=== PATIENT | female | born 1935 | race Caucasian/White ===

== ENCOUNTER 2018-03-17 05:55 | Day surgery (SDC) | payer OTHER ==
[~2018-03-17 05:55] MED LIST: COZAAR50 MG; GLIMEPIRIDE2 MG; KOMBIGLYZE XR1 EAC2; KOMBIGLYZE XR1 EAC2 PO; LANTUS; SIMVASTATIN20 MG
== END 2018-03-17 09:53 | disposition home or self-care (01) ==
LOC: CIR.AMB 05:55 → ADM 04-09 07:30
DX: M65.331 Trigger finger, right middle finger (principal)

== ENCOUNTER 2023-08-07 10:57 | Outpatient (CLI) | payer OTHER | END 2023-08-07 10:59 | disposition home or self-care (01) | LOC: SONOGRAMA 10:57 | PROVIDERS: ATTEND Pathology Anatomic Pathology & Clinical Pathology | DX: D34 Benign neoplasm of thyroid gland (principal) ==

== ENCOUNTER 2023-10-19 08:37 | Emergency (ER) | payer OTHER ==
[~2023-10-19] VITALS: Ht 154.9 cm; Wt 64.9 kg
[2023-10-19] MEDS ORDERED: ECOTRIN81 MG (08:51)
== END 2023-10-19 10:32 | disposition home or self-care (01) ==
LOC: ER 08:39
DX: S33.5XXA Sprain of ligaments of lumbar spine, initial encounter (principal); X58.XXXA Exposure to other specified factors, initial encounter; Y93.89 Activity, other specified; Y92.89 Other specified places as the place of occurrence of the external cause; Y99.8 Other external cause status; E11.9 Type 2 diabetes mellitus without complications; Z79.84 Long term (current) use of oral hypoglycemic drugs
CPT/HCPCS: 96372; 99282; J1885; J2360

== ENCOUNTER 2023-11-17 06:53 | Emergency (ER) | payer OTHER ==
[~2023-11-17] VITALS: Ht 154.9 cm; Wt 67.6 kg
[~2023-11-17 06:53] MED LIST changes: +ECOTRIN81 MG
[2023-11-17] MEDS ORDERED: KETOROLAC TROMETHAMINE 30 MG VIAL IV ONE (08:30)
== END 2023-11-17 10:09 | disposition home or self-care (01) ==
LOC: ER 06:53
DX: M51.26 Other intervertebral disc displacement, lumbar region (principal); R10.9 Unspecified abdominal pain; I10 Essential (primary) hypertension; E11.9 Type 2 diabetes mellitus without complications
CPT/HCPCS: 72131; 96365; 99284; J1885

== ENCOUNTER 2024-03-26 09:50 | Inpatient (IN) | payer OTHER ==
[~2024-03-26] VITALS: Ht 154.9 cm; Wt 133.8 kg
[2024-03-26] MEDS ORDERED: JUVEN PACKET1 EAC1 PO (10:15)
[2024-03-26 10:57] LABS: HEMATOCRIT 33.7 % (36.0-45.00); HEMOGLOBIN 11.5 g/dL (12.0-15.00); MEAN CELL VOLUME 93.3 fL (80.00-100.00); MEAN CORPUSCULAR HEMOGLOBIN 31.8 pg (27.00-32.0); MEAN CORPUSCULAR HGB CONC 34.1 g/dl (32.0-36.0); PLATELET COUNT 342 K/uL (150-450); RED BLOOD COUNT 3.61 M/uL (4.00-6.00)
[2024-03-26] MEDS ORDERED: ONDANSETRON HCL 2 MG/ML VIAL IV STA (10:59)
[2024-03-26 11:24] LABS: CALCIUM 9.1 mg/dL (8.5-10.1); CREATININE SERUM 1.22 mg/dL (0.55-1.02); GFR 41.69; POTASSIUM 4.13 mEq/L (3.5-5.1)
[2024-03-26 11:25] LABS: PH,URINE 5.5 (5.0-8.0); URINE APPEARANCE Clear; URINE BILIRRUBIN Negative (NEGATIVE); URINE BLOOD Negative; URINE COLOR Yellow; URINE GLUCOSE Negative (NEGATIVE); URINE LEUKOCYTE Negative; URINE NITRATE Negative; URINE PROTEIN Negative (NEGATIVE); URINE UROBILINOGEN 0.2 E.U./dl
[2024-03-26 11:26] LABS: URINE BACTERIA 8.8 uL (0.0-1933); URINE EPITHELIAL CELLS 3.8 uL (0.0-38.8); URINE WBC 6.1 uL (0.0-23.2)
[2024-03-26 11:28] LABS: URINE RBC 0.4 uL (0.0-20.8)
[2024-03-26] MEDS ORDERED: FAMOTIDINE/PF 20 MG in 0.9 % SODIUM CHLORIDE 8 ML IV PUSH STA (19:28)
[2024-03-26] MEDS ORDERED: MEPERIDINE HCL/PF 25 MG/ML VIAL IM PRN (19:30)
[2024-03-26] MEDS ORDERED: PROMETHAZINE HCL 25 MG/ML AMPUL IM PRN (19:30)
[2024-03-26] MEDS ORDERED: 0.9 % SODIUM CHLORIDE 1,000 ML IV SCH ×2 (19:30→20:30)
[2024-03-26 19:58] LABS: HEMATOCRIT 33.7 % (36.0-45.00); HEMOGLOBIN 11.4 g/dL (12.0-15.00); MEAN CELL VOLUME 92.2 fL (80.00-100.00); MEAN CORPUSCULAR HEMOGLOBIN 31.1 pg (27.00-32.0); MEAN CORPUSCULAR HGB CONC 33.8 g/dl (32.0-36.0); PLATELET COUNT 378 K/uL (150-450); RED BLOOD COUNT 3.66 M/uL (4.00-6.00); RED CELL DISTRIBUTION WIDTH 13.4 % (11.5-14.5)
[2024-03-26 20:23] LABS: ALBUMIN 3.3 gm/dL (3.4-5.0); BILIRUBIN TOTAL 0.45 mg/dL (0.3-1.2); CALCIUM 9.3 mg/dL (8.5-10.1); CREATININE SERUM 1.23 mg/dL (0.55-1.02); GFR 41.3; GLOBULINA 4.4 G/DL (2.4-3.5); POTASSIUM 4.23 mEq/L (3.5-5.1); TOTAL PROTEIN 7.7 gm/dL (6.4-8.2)
[2024-03-26] MEDS ORDERED: INSULIN LISPRO 1,000 UNIT/10 ML UNITS SUBCUTANEO PRN (20:30)
[2024-03-26] MEDS ORDERED: DEXTROSE 50 % IN WATER 0.5 G/ML DISP.SYRIN IV PRN (20:30)
[2024-03-26] MEDS ORDERED: SIMVASTATIN 40 MG TABLET PO SCH (20:38)
[2024-03-26] MEDS ORDERED: ONDANSETRON HCL 4 MG in 0.9 % SODIUM CHLORIDE 50 ML IV PRN (20:45)
[2024-03-26] MEDS ORDERED: hydrALAZINE HCL 20 MG VIAL IV PRN (20:45)
[2024-03-26] MEDS ORDERED: ACETAMINOPHEN 500 MG GEL..CAP PO PRN (20:45)
[2024-03-26] MEDS ORDERED: FAMOTIDINE/PF 20 MG in 0.9 % SODIUM CHLORIDE 8 ML IV PUSH SCH (21:00)
[2024-03-26] MEDS ORDERED: METRONIDAZOLE/SODIUM CHLORIDE 100 ML IV SCH (21:00)
[2024-03-26] MEDS ORDERED: CIPROFLOXACIN IN 5 % DEXTROSE 200 ML IV SCH (21:00)
[2024-03-27] MEDS ORDERED: MEPERIDINE HCL/PF 25 MG/ML VIAL IM SCH
[2024-03-27] MEDS ORDERED: METRONIDAZOLE/SODIUM CHLORIDE 100 ML IV SCH (01:00)
[2024-03-27 07:31] LABS: HEMATOCRIT 31.1 % (36.0-45.00); HEMOGLOBIN 10.6 g/dL (12.0-15.00); MEAN CELL VOLUME 92.1 fL (80.00-100.00); MEAN CORPUSCULAR HEMOGLOBIN 31.3 pg (27.00-32.0); PLATELET COUNT 311 K/uL (150-450); RED BLOOD COUNT 3.38 M/uL (4.00-6.00); RED CELL DISTRIBUTION WIDTH 13.3 % (11.5-14.5)
[2024-03-27 08:00] LABS: ALBUMIN 2.9 gm/dL (3.4-5.0); BILIRUBIN TOTAL 0.64 mg/dL (0.3-1.2); BILIRUBIN,CONJUGATED 0.16 mg/dL (0.0-0.2); BILIRUBIN,UNCONJUGATED 0.48 mg/dL (0.0-0.6); CALCIUM 8.7 mg/dL (8.5-10.1); CHOL HDL RATIO 2.2 (0-5.0); CREATININE SERUM 1.14 mg/dL (0.55-1.02); GFR 45.09; GLOBULINA 3.4 G/DL (2.4-3.5); POTASSIUM 4.48 mEq/L (3.5-5.1); TOTAL PROTEIN 6.3 gm/dL (6.4-8.2)
[2024-03-27 08:19] LABS: ERYTHROCYTE SEDIMENTATION RATE 55 mm/hr
[2024-03-27 08:20] LABS: PARTIAL THROMBOPLASTIN TIME 31.5 SECONDS (22.0-34.0); PROTHROMBIN TIME 10.5 SECONDS (9.0-11.5)
[2024-03-27 08:35] LABS: C-REACTIVE PROTEIN 3.81 MG/DL (0.00-0.29)
[2024-03-27 08:37] LABS: URINE APPEARANCE Clear; URINE BILIRRUBIN Negative (NEGATIVE); URINE BLOOD Negative; URINE COLOR Yellow; URINE GLUCOSE Negative (NEGATIVE); URINE LEUKOCYTE Negative; URINE NITRATE Negative; URINE PROTEIN Negative (NEGATIVE); URINE UROBILINOGEN 0.2 E.U./dl
[2024-03-27 08:42] LABS: URINE EPITHELIAL CELLS 5.3 uL (0.0-38.8); URINE WBC 7.8 uL (0.0-23.2)
[2024-03-27 08:51] LABS: URINE RBC 0.1 uL (0.0-20.8)
[2024-03-27] MEDS ORDERED: LOSARTAN POTASSIUM 100 MG TABLET PO SCH (09:00)
[2024-03-27] MEDS ORDERED: DEXTROSE 50 % IN WATER 0.5 G/ML DISP.SYRIN IV PRN (11:45)
[2024-03-27] MEDS ORDERED: AMINO ACIDS 4.25 %/DEXTROSE 5% 1,000 ML PERIFERAL SCH (17:00)
[2024-03-29 07:48] LABS: HEMATOCRIT 30.4 % (36.0-45.00); HEMOGLOBIN 10.2 g/dL (12.0-15.00); MEAN CELL VOLUME 92.6 fL (80.00-100.00); MEAN CORPUSCULAR HGB CONC 33.5 g/dl (32.0-36.0); PLATELET COUNT 288 K/uL (150-450); RED BLOOD COUNT 3.29 M/uL (4.00-6.00); RED CELL DISTRIBUTION WIDTH 13.3 % (11.5-14.5)
[2024-03-29 08:26] LABS: INR 1.1; PARTIAL THROMBOPLASTIN TIME 33.7 SECONDS (22.0-34.0); PROTHROMBIN TIME 11.5 SECONDS (9.0-11.5)
[2024-03-29 08:38] LABS: ALBUMIN 2.9 gm/dL (3.4-5.0); BILIRUBIN TOTAL 0.43 mg/dL (0.3-1.2); BILIRUBIN,CONJUGATED 0.14 mg/dL (0.0-0.2); BILIRUBIN,UNCONJUGATED 0.29 mg/dL (0.0-0.6); CALCIUM 8.5 mg/dL (8.5-10.1); CHOL HDL RATIO 1.7 (0-5.0); CREATININE SERUM 1.1 mg/dL (0.55-1.02); GFR 46.98; GLOBULINA 3.4 G/DL (2.4-3.5); MAGNESIUM 1.5 mg/dL (1.8-2.4); POTASSIUM 3.94 mEq/L (3.5-5.1); TOTAL PROTEIN 6.3 gm/dL (6.4-8.2)
[2024-03-29 09:45] LABS: UREA CLEARANCE 16.2 ML/MIN
[2024-03-29] MEDS ORDERED: MEPERIDINE HCL/PF 25 MG/ML VIAL IM SCH (12:00)
[2024-03-29] MEDS ORDERED: fentaNYL CITRATE 50 MCG/ML AMPUL IV PUSH NR (18:45)
[2024-03-29] MEDS ORDERED: MIDAZOLAM HCL 2 MG/2 ML VIAL IV PUSH NR (18:45)
[2024-03-31] MEDS ORDERED: MEPERIDINE HCL/PF 25 MG/ML VIAL IV SCH (12:00)
[2024-03-31] MEDS ORDERED: CEFTRIAXONE SODIUM 2,000 MG in 0.9 % SODIUM CHLORIDE 100 ML IV SCH (17:00)
[2024-04-01] MEDS ORDERED: DIATRIZOATE MEGLUMINE, SODIUM 30 ML BOTTLE PO NR (07:00)
[2024-04-01] MEDS ORDERED: FAMOTIDINE/PF 20 MG in 0.9 % SODIUM CHLORIDE 8 ML IV PUSH SCH (09:00)
[2024-04-01] MEDS ORDERED: MEPERIDINE HCL/PF 25 MG/ML VIAL IV STA (09:05)
[2024-04-01] MEDS ORDERED: ONDANSETRON HCL 2 MG/ML VIAL IV STA (09:06)
[2024-04-01] MEDS ORDERED: DIPHENHYDRAMINE HCL 50 MG/ML VIAL 1ML IV NR (13:45)
[2024-04-01] MEDS ORDERED: METHYLPREDNISOLONE SOD SUCC 40 MG VIAL IV NR (13:45)
[2024-04-01] MEDS ORDERED: ONDANSETRON HCL 2 MG/ML VIAL IV SCH (14:00)
[2024-04-03] MEDS ORDERED: CLONAZEPAM 0.5 MG TABLET PO SCH (17:00)
[2024-04-04 11:56] LABS: ALBUMIN 2.7 gm/dL (3.4-5.0); BILIRUBIN TOTAL 0.3 mg/dL (0.3-1.2); CALCIUM 8.2 mg/dL (8.5-10.1); CREATININE SERUM 0.96 mg/dL (0.55-1.02); GFR 54.98; GLOBULINA 3.6 G/DL (2.4-3.5); POTASSIUM 3.36 mEq/L (3.5-5.1); TOTAL PROTEIN 6.3 gm/dL (6.4-8.2)
[2024-04-05 07:42] LABS: HEMATOCRIT 32.3 % (36.0-45.00); MEAN CELL VOLUME 92.4 fL (80.00-100.00); MEAN CORPUSCULAR HEMOGLOBIN 31.5 pg (27.00-32.0); MEAN CORPUSCULAR HGB CONC 34.1 g/dl (32.0-36.0); PLATELET COUNT 309 K/uL (150-450); RED BLOOD COUNT 3.49 M/uL (4.00-6.00); RED CELL DISTRIBUTION WIDTH 13.9 % (11.5-14.5)
[2024-04-05 08:04] LABS: INR 1.04; PARTIAL THROMBOPLASTIN TIME 31.3 SECONDS (22.0-34.0); PROTHROMBIN TIME 10.9 SECONDS (9.0-11.5)
[2024-04-05 08:22] LABS: ALBUMIN 2.7 gm/dL (3.4-5.0); BILIRUBIN TOTAL 0.28 mg/dL (0.3-1.2); BILIRUBIN,CONJUGATED 0.11 mg/dL (0.0-0.2); BILIRUBIN,UNCONJUGATED 0.17 mg/dL (0.0-0.6); CALCIUM 8.6 mg/dL (8.5-10.1); CHOL HDL RATIO 2.4 (0-5.0); CREATININE SERUM 0.94 mg/dL (0.55-1.02); GFR 56.33; GLOBULINA 3.4 G/DL (2.4-3.5); MAGNESIUM 1.5 mg/dL (1.8-2.4); POTASSIUM 3.3 mEq/L (3.5-5.1); TOTAL PROTEIN 6.1 gm/dL (6.4-8.2)
[2024-04-05 08:25] LABS: UREA CLEARANCE 12.7 ML/MIN
[2024-04-05] MEDS ORDERED: METRONIDAZOLE/SODIUM CHLORIDE 500 MG/100 ML PIGGYBACK IV SCH (17:00)
[2024-04-05] MEDS ORDERED: CLONAZEPAM 1 MG TABLET PO SCH (17:00)
[2024-04-06 06:08] LABS: MEAN CELL VOLUME 91.7 fL (80.00-100.00); MEAN CORPUSCULAR HEMOGLOBIN 31.7 pg (27.00-32.0); MEAN CORPUSCULAR HGB CONC 34.6 g/dl (32.0-36.0); PLATELET COUNT 280 K/uL (150-450); RED BLOOD COUNT 3.49 M/uL (4.00-6.00); RED CELL DISTRIBUTION WIDTH 13.8 % (11.5-14.5)
[2024-04-06] MEDS ORDERED: ENOXAPARIN SODIUM 40 MG/0.4 ML SYRINGE SUBCUTANEO SCH (09:38)
[2024-04-06] MEDS ORDERED: CLONAZEPAM 1 MG TABLET PO SCH (19:00)
[2024-04-07] MEDS ORDERED: KETOROLAC TROMETHAMINE 30 MG VIAL IM PRN (09:00)
[2024-04-07] MEDS ORDERED: ENOXAPARIN SODIUM 40 MG/0.4 ML SYRINGE SUBCUTANEO SCH (09:00)
== END 2024-04-08 12:21 | disposition home or self-care (01) | DRG 372 ==
LOC: ER 09:51 → MEDJ 21:18
PROVIDERS: Emergency Medicine; General Practice; Internal Medicine; ADMIT Internal Medicine; ATTEND Internal Medicine
PROC: BW21ZZZ Computerized Tomography (CT Scan) of Abdomen and Pelvis (ICD-10-PCS; 2024-03-26)
PROC: BW21YZZ Computerized Tomography (CT Scan) of Abdomen and Pelvis using Other Contrast (ICD-10-PCS; 2024-03-28)
PROC: 0W9F3ZZ Drainage of Abdominal Wall, Percutaneous Approach (ICD-10-PCS; principal; 2024-03-29)
PROC: 02HV33Z Insertion of Infusion Device into Superior Vena Cava, Percutaneous Approach (ICD-10-PCS; 2024-03-31)
PROC: BW21YZZ Computerized Tomography (CT Scan) of Abdomen and Pelvis using Other Contrast (ICD-10-PCS; 2024-04-01)
PROC: B54DZZZ Ultrasonography of Bilateral Lower Extremity Veins (ICD-10-PCS; 2024-04-06)
DX: K65.1 Peritoneal abscess (principal); K57.80 Diverticulitis of intestine, part unspecified, with perforation and abscess without bleeding; B96.20 Unspecified Escherichia coli [E. coli] as the cause of diseases classified elsewhere; E11.9 Type 2 diabetes mellitus without complications; Z79.4 Long term (current) use of insulin

== ENCOUNTER 2024-04-17 20:11 | Emergency (ER) | payer OTHER ==
[~2024-04-17] VITALS: Ht 154.9 cm; Wt 59.0 kg
[~2024-04-17 20:11] MED LIST changes: +JUVEN PACKET1 EAC1 PO
[2024-04-17] MEDS ORDERED: DEXAMETHASONE SODIUM PHOSPHATE 4 MG/ML VIAL IM STA (21:11)
[2024-04-17] MEDS ORDERED: DEXAMETHASONE SODIUM PHOSPHATE 4 MG/ML VIAL ONE (21:23)
== END 2024-04-17 22:09 | disposition home or self-care (01) ==
LOC: ER 20:12
DX: R53.81 Other malaise (principal); R07.0 Pain in throat

== ENCOUNTER 2024-04-19 15:15 | Emergency (ER) | payer OTHER ==
[~2024-04-19] VITALS: Ht 152.4 cm; Wt 59.0 kg
[2024-04-19] MEDS ORDERED: ALL DAY ALLERGY10 M3 PO (15:46)
[2024-04-19] MEDS ORDERED: BUDESONIDE 0.5 MG/2 ML AMPUL.NEB IH ONE (17:30)
[2024-04-19] MEDS ORDERED: LEVALBUTEROL HCL 1.25 MG/3 ML SOLUTION IH ONE ×2 (17:30→19:48)
[2024-04-19] MEDS ORDERED: BENZONATATE 100 MG CAPSULE PO ONE (17:30)
[2024-04-19 17:38] LABS: HEMATOCRIT 32.5 % (36.0-45.00); HEMOGLOBIN 10.9 g/dL (12.0-15.00); MEAN CELL VOLUME 91.9 fL (80.00-100.00); MEAN CORPUSCULAR HEMOGLOBIN 30.8 pg (27.00-32.0); MEAN CORPUSCULAR HGB CONC 33.5 g/dl (32.0-36.0); PLATELET COUNT 465 K/uL (150-450); RED BLOOD COUNT 3.54 M/uL (4.00-6.00); RED CELL DISTRIBUTION WIDTH 14.9 % (11.5-14.5)
[2024-04-19] MEDS ORDERED: BUDESONIDE 0.25 MG/2 ML AMPUL.NEB IH ONE ×2 (19:49→19:50)
[2024-04-19] MEDS ORDERED: XOPENEX CO1.25 MG/0. IH (20:31)
[2024-04-19] MEDS ORDERED: BENZONATATE150 MG PO (20:31)
[2024-04-19] MEDS ORDERED: BUDESONIDE0.5 MG/21 IH (20:31)
[2024-04-19] MEDS ORDERED: INTESTINEX680 M1 PO (20:31)
[2024-04-19] MEDS ORDERED: DIABETIC TUSSI118 M3 PO (20:31)
[2024-04-19] MEDS ORDERED: IPRATROPIU0.2 MG/1 M IH (20:31)
[2024-04-19] MEDS ORDERED: LEVOFLOXACIN500 MG PO (20:31)
== END 2024-04-19 20:37 ==
LOC: ER 15:16
PROVIDERS: Nurse Practitioner Family
DX: J45.909 Unspecified asthma, uncomplicated (principal); R05.3 Chronic cough; Z20.822 Contact with and (suspected) exposure to COVID-19; I10 Essential (primary) hypertension; E11.9 Type 2 diabetes mellitus without complications

== ENCOUNTER 2024-04-26 18:47 | Inpatient (IN) | payer OTHER ==
[~2024-04-26] VITALS: Ht 154.9 cm; Wt 59.0 kg
[~2024-04-26 18:47] MED LIST changes: +ALL DAY ALLERGY10 M3 PO; +BENZONATATE150 MG PO; +BUDESONIDE0.5 MG/21 IH; +DIABETIC TUSSI118 M3 PO; +INTESTINEX680 M1 PO; +IPRATROPIU0.2 MG/1 M IH; +LEVOFLOXACIN500 MG PO; +XOPENEX CO1.25 MG/0. IH
--- NOTE | 2024-04-26 20:09 | NUR ---
PACIENTE ALERTA Y ORIENTADA X3. FAMILIAR REFIERE QUE A PACIENTE LE COLOCARON ARCHANA NEFRO HACE UN MES. PACIENTE REFIERE DOLOR ALYCE EN AREA. SE JOSE S/V Y SE UBICA.
[2024-04-26] MEDS ORDERED: FAMOtidine 10 MG/ML (4ML VIAL) IV ONE (21:15)
[2024-04-26] MEDS ORDERED: 0.9 % SODIUM CHLORIDE 1,000 ML IV ONE (21:15)
[2024-04-26] MEDS ORDERED: LEVALBUTEROL HCL 0.63 MG/3 ML SOLUTION IH ONE (21:15)
[2024-04-26] MEDS ORDERED: BENZONATATE 100 MG CAPSULE PO ONE (21:15)
--- NOTE | 2024-04-26 21:31 | NUR ---
SE ORIENTA A PACIENTE SOBRE TX MEDICO, REFIERE ENTENDER. SE REALIZAN MUESTRAS DE LABORATORIO BAJO MEDIDAS ASEPTICAS. SE ADMINISTRAN MEDICAMENTOS АЛЕКСАНДР ORDEN MEDICA. SE COORDINAN HOLLIS X. SE NOTIFICAN TERAPIA RESPIRATORIA. PACIENTE MANEJADA POR . PENDIENTE RE-EVALUACION MEDICA.
[2024-04-26 21:49] LABS: HEMATOCRIT 34.3 % (36.0-45.00); HEMOGLOBIN 11.9 g/dL (12.0-15.00); MEAN CELL VOLUME 92.8 fL (80.00-100.00); MEAN CORPUSCULAR HEMOGLOBIN 32.2 pg (27.00-32.0); MEAN CORPUSCULAR HGB CONC 34.7 g/dl (32.0-36.0); PLATELET COUNT 420 K/uL (150-450); RED BLOOD COUNT 3.69 M/uL (4.00-6.00); RED CELL DISTRIBUTION WIDTH 14.1 % (11.5-14.5)
[2024-04-26 22:06] LABS: INR 1.02; PARTIAL THROMBOPLASTIN TIME 35.3 SECONDS (22.0-34.0); PROTHROMBIN TIME 10.7 SECONDS (9.0-11.5)
[2024-04-26 22:10] LABS: ALBUMIN 2.9 gm/dL (3.4-5.0); BILIRUBIN TOTAL 0.35 mg/dL (0.3-1.2); CALCIUM 9.5 mg/dL (8.5-10.1); CREATININE SERUM 1.37 mg/dL (0.55-1.02); GFR 36.47; GLOBULINA 4.9 G/DL (2.4-3.5); POTASSIUM 3.82 mEq/L (3.5-5.1); TOTAL PROTEIN 7.8 gm/dL (6.4-8.2)
[2024-04-26 22:13] LABS: ERYTHROCYTE SEDIMENTATION RATE > 130 mm/hr
[2024-04-26] MEDS ORDERED: KETOROLAC TROMETHAMINE 30 MG VIAL IV ONE (23:15)
--- NOTE | 2024-04-27 02:17 | NUR ---
SE ADMINISTRA MEDICAMENTO АЛЕКСАНДР ORDEN MEDICA.QUEDA BAJO OBSERVACION.
--- NOTE | 2024-04-27 07:31 | NUR ---
SE RECIBE PTE ALERTA Y ORIENTADA X3. EN DYAN BAJA CON BARANDAS ELEVADAS POR SEGURIDAD. CANALIZACION PATENTE, LEANA DE EDEMA Y ERITEMA, RECIBIENDO IV FLUIDS. PEND CONSULTA CON DR. PABON
[2024-04-27 08:23] LABS: URINE APPEARANCE Clear; URINE BILIRRUBIN Negative (NEGATIVE); URINE BLOOD Negative; URINE COLOR Yellow; URINE GLUCOSE Negative (NEGATIVE); URINE KETONE Negative (NEGATIVE); URINE LEUKOCYTE Negative; URINE NITRATE Negative; URINE PROTEIN 30 (NEGATIVE); URINE UROBILINOGEN 0.2 E.U./dl
[2024-04-27] MEDS ORDERED: KETOROLAC TROMETHAMINE 30 MG VIAL IM PRN (09:00)
[2024-04-27] MEDS ORDERED: METRONIDAZOLE/SODIUM CHLORIDE 100 ML IV SCH (09:00)
[2024-04-27 09:02] LABS: URINE BACTERIA 14.7 uL (0.0-1933); URINE EPITHELIAL CELLS 77.9 uL (0.0-38.8); URINE RBC 157.4 uL (0.0-20.8); URINE WBC 11.4 uL (0.0-23.2)
[2024-04-27] MEDS ORDERED: 0.9 % SODIUM CHLORIDE 1,000 ML IV SCH (10:00)
[2024-04-27] MEDS ORDERED: GUAIFENESIN 200 MG/10 ML BLIST.PACK PO SCH (12:00)
[2024-04-27] MEDS ORDERED: IPRATROPIUM BROMIDE 0.5 MG/2.5 ML AMPUL.NEB IH SCH (14:00)
[2024-04-27] MEDS ORDERED: DEXTROSE 50 % IN WATER 0.5 G/ML DISP.SYRIN IV PRN (14:30)
[2024-04-27] MEDS ORDERED: ONDANSETRON HCL 4 MG in 0.9 % SODIUM CHLORIDE 50 ML IV PRN (14:30)
[2024-04-27] MEDS ORDERED: INSULIN LISPRO 1,000 UNIT/10 ML UNITS SUBCUTANEO PRN (14:30)
[2024-04-27] MEDS ORDERED: LOSARTAN POTASSIUM 100 MG TABLET PO SCH (14:32)
[2024-04-27] MEDS ORDERED: ENOXAPARIN SODIUM 40 MG/0.4 ML SYRINGE SUBCUTANEO SCH (14:32)
[2024-04-27] MEDS ORDERED: CEFTRIAXONE SODIUM 2,000 MG in 0.9 % SODIUM CHLORIDE 100 ML IV SCH (15:44)
[2024-04-27 16:00] LABS: INR 1.02; PARTIAL THROMBOPLASTIN TIME 32.2 SECONDS (22.0-34.0); PROTHROMBIN TIME 10.7 SECONDS (9.0-11.5)
[2024-04-27 16:06] LABS: CHOL HDL RATIO 3.1 (0-5.0)
[2024-04-27 16:09] LABS: C-REACTIVE PROTEIN 12.4 MG/DL (0.00-0.29)
[2024-04-29 05:24] LABS: HEMATOCRIT 29.2 % (36.0-45.00); MEAN CELL VOLUME 92.4 fL (80.00-100.00); MEAN CORPUSCULAR HGB CONC 33.3 g/dl (32.0-36.0); PLATELET COUNT 329 K/uL (150-450); RED BLOOD COUNT 3.16 M/uL (4.00-6.00); RED CELL DISTRIBUTION WIDTH 13.9 % (11.5-14.5)
[2024-04-29 05:25] LABS: HEMOGLOBIN 9.7 g/dL (12.0-15.00); MEAN CORPUSCULAR HEMOGLOBIN 30.6 pg (27.00-32.0)
[2024-04-29 05:40] LABS: ALBUMIN 2.3 gm/dL (3.4-5.0); BILIRUBIN TOTAL 0.4 mg/dL (0.3-1.2); CALCIUM 8.2 mg/dL (8.5-10.1); CREATININE SERUM 1.19 mg/dL (0.55-1.02); GFR 42.91; GLOBULINA 3.3 G/DL (2.4-3.5); POTASSIUM 4.03 mEq/L (3.5-5.1); TOTAL PROTEIN 5.6 gm/dL (6.4-8.2)
[2024-04-29] MEDS ORDERED: MEPERIDINE HCL 25 MG/ML AMPUL IM PRN (08:15)
[2024-04-29] MEDS ORDERED: BENZONATATE 100 MG CAPSULE PO SCH (09:00)
[2024-04-29] MEDS ORDERED: IPRATROPIUM BROMIDE 0.5 MG/2.5 ML AMPUL.NEB IH SCH (09:00)
[2024-04-29] MEDS ORDERED: PANTOPRAZOLE SODIUM 40 MG/VIAL VIAL IV SCH (17:00)
[2024-04-29] MEDS ORDERED: MULTIVIT INFUSN,ADULT 4,VIT K 10 ML VIAL IV SCH (17:53)
[2024-04-30] MEDS ORDERED: IPRATROPIUM BROMIDE 0.5 MG/2.5 ML AMPUL.NEB IH SCH (06:00)
[2024-04-30] MEDS ORDERED: BENZONATATE 100 MG CAPSULE PO NR (06:45)
[2024-04-30] MEDS ORDERED: MORPHINE SULFATE 4 MG/ML CARTRIDGE IV PRN (06:45)
[2024-04-30 08:22] LABS: HEMATOCRIT 31.7 % (36.0-45.00); HEMOGLOBIN 10.4 g/dL (12.0-15.00); MEAN CELL VOLUME 93.3 fL (80.00-100.00); MEAN CORPUSCULAR HEMOGLOBIN 30.5 pg (27.00-32.0); MEAN CORPUSCULAR HGB CONC 32.7 g/dl (32.0-36.0); PLATELET COUNT 361 K/uL (150-450); RED CELL DISTRIBUTION WIDTH 13.8 % (11.5-14.5)
[2024-04-30] MEDS ORDERED: BUDESONIDE 0.25 MG/2 ML AMPUL.NEB IH SCH (09:00)
[2024-04-30] MEDS ORDERED: ENOXAPARIN SODIUM 30 MG/0.3 ML SYRINGE SUBCUTANEO SCH (09:00)
[2024-04-30] MEDS ORDERED: GUAIFENESIN 200 MG/10 ML BLIST.PACK PO SCH (14:00)
[2024-05-01] MEDS ORDERED: BUDESONIDE 0.5 MG/2 ML AMPUL.NEB IH SCH (21:00)
[2024-05-03 09:47] LABS: HEMATOCRIT 34.7 % (36.0-45.00); HEMOGLOBIN 11.4 g/dL (12.0-15.00); MEAN CELL VOLUME 91.4 fL (80.00-100.00); MEAN CORPUSCULAR HEMOGLOBIN 29.9 pg (27.00-32.0); MEAN CORPUSCULAR HGB CONC 32.8 g/dl (32.0-36.0); PLATELET COUNT 461 K/uL (150-450); RED CELL DISTRIBUTION WIDTH 14.6 % (11.5-14.5)
[2024-05-03 10:36] LABS: ALBUMIN 2.8 gm/dL (3.4-5.0); BILIRUBIN TOTAL 0.26 mg/dL (0.3-1.2); CREATININE SERUM 0.96 mg/dL (0.55-1.02); GFR 54.98; GLOBULINA 3.7 G/DL (2.4-3.5); POTASSIUM 4.24 mEq/L (3.5-5.1); TOTAL PROTEIN 6.5 gm/dL (6.4-8.2)
[2024-05-03] MEDS ORDERED: IOVERSOL 320 MG/ML - 50 ML VIAL IV ONE (20:01)
[2024-05-03] MEDS ORDERED: BUPIVACAINE HCL/MPF 0.5% 30ML VIAL ONE (20:01)
[2024-05-03] MEDS ORDERED: LIDOCAINE HCL 1%/EPINEPHRINE 20ML VIAL IJ ONE (20:02)
[2024-05-03] MEDS ORDERED: METHYLPREDNISOLONE SOD SUCC 40 MG VIAL IV SCH (20:29)
[2024-05-03] MEDS ORDERED: IPRATROPIUM/ALBUTEROL SULFATE 3 ML AMPUL.NEB IH ONE (20:56)
[2024-05-03] MEDS ORDERED: IPRATROPIUM/ALBUTEROL SULFATE 3 ML AMPUL.NEB IH SCH (21:00)
[2024-05-03] MEDS ORDERED: SILVER NITRATE APPLICATOR 1 PKT EACH TOP ONE (22:00)
[2024-05-04] MEDS ORDERED: IPRATROPIUM/ALBUTEROL SULFATE 3 ML AMPUL.NEB IH ONE (00:14)
[2024-05-04] MEDS ORDERED: METRONIDAZOLE/SODIUM CHLORIDE 500 MG/100 ML PIGGYBACK IV ONE (01:20)
[2024-05-04] MEDS ORDERED: METHYLPREDNISOLONE SOD SUCC 40 MG VIAL ONE (01:20)
[2024-05-04] MEDS ORDERED: PANTOPRAZOLE SODIUM 40 MG TABLET.DR PO SCH (09:00)
[2024-05-04] MEDS ORDERED: INSULIN GLARGINE,HUM.REC.ANLOG 1,000 UNITS/10 ML UNITS SUBCUTANEO STA (20:43)
[2024-05-05] MEDS ORDERED: MEPERIDINE HCL 25 MG/ML AMPUL IM PRN (06:30)
[2024-05-05 08:22] LABS: HEMATOCRIT 29.9 % (36.0-45.00); HEMOGLOBIN 9.9 g/dL (12.0-15.00); MEAN CELL VOLUME 92.7 fL (80.00-100.00); MEAN CORPUSCULAR HEMOGLOBIN 30.7 pg (27.00-32.0); MEAN CORPUSCULAR HGB CONC 33.1 g/dl (32.0-36.0); PLATELET COUNT 453 K/uL (150-450); RED BLOOD COUNT 3.23 M/uL (4.00-6.00); RED CELL DISTRIBUTION WIDTH 14.1 % (11.5-14.5)
[2024-05-05] MEDS ORDERED: INSULIN LISPRO 1,000 UNIT/10 ML UNITS SUBCUTANEO SCH ×2 (09:00→17:00)
[2024-05-05] MEDS ORDERED: BENZONATATE 100 MG CAPSULE PO SCH (09:00)
[2024-05-05 09:27] LABS: ALBUMIN 2.7 gm/dL (3.4-5.0); BILIRUBIN TOTAL 0.17 mg/dL (0.3-1.2); CALCIUM 8.5 mg/dL (8.5-10.1); CREATININE SERUM 1.12 mg/dL (0.55-1.02); GFR 46.02; GLOBULINA 3.2 G/DL (2.4-3.5); POTASSIUM 4.32 mEq/L (3.5-5.1); TOTAL PROTEIN 5.9 gm/dL (6.4-8.2)
[2024-05-05] MEDS ORDERED: ACETAMINOPHEN 500 MG GEL..CAP PO PRN (12:45)
[2024-05-05] MEDS ORDERED: INSULIN GLARGINE,HUM.REC.ANLOG 1,000 UNITS/10 ML UNITS SUBCUTANEO SCH (21:00)
[2024-05-06] MEDS ORDERED: METROnidazole 500 MG TABLET PO SCH (17:00)
[2024-05-07] MEDS ORDERED: LEVALBUTEROL HCL 0.63 MG/3 ML SOLUTION IH SCH (08:16)
[2024-05-08] MEDS ORDERED: BENZONATATE100 MG PO (09:25)
[2024-05-08] MEDS ORDERED: TUSSIN MUC100 MG/5 M PO (09:25)
[2024-05-08] MEDS ORDERED: METRONIDAZOLE500 MG PO (09:25)
[2024-05-08] MEDS ORDERED: PANTOPRAZOLE SO40 MG PO (09:25)
[2024-05-08] MEDS ORDERED: LEVALBUTER0.31 MG/3 IH (09:25)
[2024-05-08] MEDS ORDERED: TRAMADOL HCL100 M2 PO (09:29)
== END 2024-05-08 10:51 | disposition home or self-care (01) | DRG 392 ==
LOC: ER 18:48 → SEC-K 04-27 09:07 → SURH 04-27 09:07 → MEDI 04-27 09:07 → SURH 04-29 21:03
PROVIDERS: General Practice; Radiology Vascular & Interventional Radiology; ADMIT Internal Medicine; ATTEND Internal Medicine
PROC: 0W2FX0Z Change Drainage Device in Abdominal Wall, External Approach (ICD-10-PCS; principal; 2024-05-03 19:00)
DX: K57.20 Diverticulitis of large intestine with perforation and abscess without bleeding (principal); J45.41 Moderate persistent asthma with (acute) exacerbation; K63.2 Fistula of intestine; T85.9XXA Unspecified complication of internal prosthetic device, implant and graft, initial encounter; D64.9 Anemia, unspecified; I10 Essential (primary) hypertension; E11.9 Type 2 diabetes mellitus without complications; E78.5 Hyperlipidemia, unspecified; E11.65 Type 2 diabetes mellitus with hyperglycemia; B96.20 Unspecified Escherichia coli [E. coli] as the cause of diseases classified elsewhere; B96.89 Other specified bacterial agents as the cause of diseases classified elsewhere

== ENCOUNTER 2024-08-18 09:00 | Inpatient (IN) | payer OTHER ==
[~2024-08-18] VITALS: Ht 30.5 cm; Wt 59.0 kg
[~2024-08-18 09:00] MED LIST changes: +BENZONATATE100 MG PO; +LEVALBUTER0.31 MG/3 IH; +METRONIDAZOLE500 MG PO; +PANTOPRAZOLE SO40 MG PO; +TRAMADOL HCL100 M2 PO; +TUSSIN MUC100 MG/5 M PO
[2024-08-18] MEDS ORDERED: JANUMET 50-5001 EACH PO (12:05)
[2024-08-18] MEDS ORDERED: AMOX TR-K250 MG/5 M (12:05)
[2024-08-18] MEDS ORDERED: HORIZANT300 MG PO (12:06)
[2024-08-30] MEDS ORDERED: CEFTRIAXONE SODIUM 2,000 MG VIAL IV ONE (11:00)
[2024-08-30] MEDS ORDERED: METRONIDAZOLE/SODIUM CHLORIDE 500 MG/100 ML PIGGYBACK IV ONE (11:00)
[2024-08-30] MEDS ORDERED: RINGERS SOLUTION,LACTATED 1,000 ML IV SCH (13:15)
[2024-08-30] MEDS ORDERED: ONDANSETRON HCL 2 MG/ML VIAL IV PRN (13:15)
[2024-08-30] MEDS ORDERED: OxyCODONE HCL 5 MG TABLET (ROXICODONE) PO PRN (13:15)
[2024-08-30] MEDS ORDERED: MORPHINE SULFATE 4 MG/ML CARTRIDGE IV PRN (13:15)
[2024-08-30] MEDS ORDERED: DEXTROSE 50 % IN WATER 0.5 G/ML DISP.SYRIN IV PRN (13:45)
[2024-08-30] MEDS ORDERED: INSULIN LISPRO 1,000 UNIT/10 ML UNITS SUBCUTANEO PRN (13:45)
[2024-08-30] MEDS ORDERED: MORPHINE SULFATE 2 MG/ML CARTRIDGE IV ONE (13:55)
[2024-08-30] MEDS ORDERED: ACETAMINOPHEN 500 MG GEL..CAP PO SCH (14:00)
[2024-08-30] MEDS ORDERED: hydrALAZINE HCL 20 MG VIAL IV ONE (14:30)
[2024-08-30 15:16] LABS: HEMATOCRIT 31.2 % (36.0-45.00); HEMOGLOBIN 10.2 g/dL (12.0-15.00); MEAN CELL VOLUME 93.2 fL (80.00-100.00); MEAN CORPUSCULAR HEMOGLOBIN 30.5 pg (27.00-32.0); MEAN CORPUSCULAR HGB CONC 32.7 g/dl (32.0-36.0); PLATELET COUNT 405 K/uL (150-450); RED BLOOD COUNT 3.35 M/uL (4.00-6.00); RED CELL DISTRIBUTION WIDTH 14.6 % (11.5-14.5)
[2024-08-30] MEDS ORDERED: GABAPENTIN 300 MG CAPSULE PO SCH (17:00)
[2024-08-30] MEDS ORDERED: METOCLOPRAMIDE HCL 5 MG/ML VIAL IV SCH (17:00)
[2024-08-30] MEDS ORDERED: POLYETHYLENE GLYCOL 3350 17 GM BLIST.PACK PO SCH (17:00)
[2024-08-30] MEDS ORDERED: HYOSCYAMINE SULFATE 0.125 MG TAB.SUBL SL SCH (17:00)
[2024-08-30] MEDS ORDERED: SIMETHICONE 125 MG CAPSULE PO SCH (17:00)
[2024-08-30 18:47] VITALS: BP 163/70; O2SAT 97
[2024-08-30] MEDS ORDERED: FAMOTIDINE/PF 20 MG/2 ML VIAL IV PUSH SCH (21:00)
[2024-08-30 21:22] VITALS: O2SAT 95
[2024-08-31] VITALS (8 sets, daily range): BP systolic 114–163; BP diastolic 65–75; O2SAT 94–98
[2024-08-31 07:41] LABS: HEMATOCRIT 33.3 % (36.0-45.00); HEMOGLOBIN 11.1 g/dL (12.0-15.00); MEAN CELL VOLUME 92.5 fL (80.00-100.00); MEAN CORPUSCULAR HEMOGLOBIN 30.9 pg (27.00-32.0); MEAN CORPUSCULAR HGB CONC 33.3 g/dl (32.0-36.0); PLATELET COUNT 396 K/uL (150-450); RED BLOOD COUNT 3.59 M/uL (4.00-6.00); RED CELL DISTRIBUTION WIDTH 14.7 % (11.5-14.5)
[2024-08-31] MEDS ORDERED: LACTOBACILLUS ACIDOPHILUS 1 CAP CAP PO SCH (09:00)
[2024-08-31] MEDS ORDERED: LOSARTAN POTASSIUM 50 MG TABLET PO SCH (09:00)
[2024-08-31 09:01] LABS: CALCIUM 8.9 mg/dL (8.5-10.1); CREATININE SERUM 1.2 mg/dL (0.55-1.02); GFR 42.5; MAGNESIUM 1.6 mg/dL (1.8-2.4); POTASSIUM 5.14 mEq/L (3.5-5.1)
[2024-08-31] MEDS ORDERED: CLONAZEPAM 0.5 MG TABLET PO SCH (10:54)
[2024-08-31] MEDS ORDERED: KETOROLAC TROMETHAMINE 30 MG VIAL IV SCH (11:33)
[2024-08-31] MEDS ORDERED: PIPERACILLIN/TAZOBACTAM SODIUM 3.375 GM in DEXTROSE 5 % IN WATER 100 ML IV SCH (12:00)
[2024-08-31] MEDS ORDERED: ENOXAPARIN SODIUM 40 MG/0.4 ML SYRINGE SUBCUTANEO SCH (17:00)
[2024-09-01] VITALS (7 sets, daily range): BP systolic 96–137; BP diastolic 59–69; O2SAT 89–98
[2024-09-01] MEDS ORDERED: ENOXAPARIN SODIUM 40 MG/0.4 ML SYRINGE SUBCUTANEO SCH (09:00)
[2024-09-01] MEDS ORDERED: CLONAZEPAM 0.5 MG TABLET PO PRN (14:46)
[2024-09-01] MEDS ORDERED: KETOROLAC TROMETHAMINE 30 MG VIAL IV SCH (21:00)
[2024-09-02 00:05] VITALS: BP 101/51; O2SAT 97
[2024-09-02 01:27] VITALS: O2SAT 96
[2024-09-02 06:06] VITALS: O2SAT 98
[2024-09-02 08:00] VITALS: BP 111/63; O2SAT 93
[2024-09-02] MEDS ORDERED: NEURONTIN300 MG PO (09:20)
[2024-09-02] MEDS ORDERED: AMOX-CLAV 875-1 EACH PO (09:20)
[2024-09-02] MEDS ORDERED: LEVSIN/SL0.125 MG SL (09:20)
[2024-09-02] MEDS ORDERED: CELECOXIB200 MG PO (09:20)
[2024-09-02 09:35] VITALS: O2SAT 96
== END 2024-09-02 11:39 | disposition home or self-care (01) | DRG 329 ==
LOC: SURH 08-30 05:23 → O/R 08-30 05:23 → SURH 08-30 09:00
PROVIDERS: ADMIT Surgery; ATTEND Surgery
PROC: 0DBP4ZZ Excision of Rectum, Percutaneous Endoscopic Approach (ICD-10-PCS; 2024-08-30)
PROC: 0DNW4ZZ Release Peritoneum, Percutaneous Endoscopic Approach (ICD-10-PCS; 2024-08-30)
PROC: 0TN74ZZ Release Left Ureter, Percutaneous Endoscopic Approach (ICD-10-PCS; 2024-08-30)
PROC: 0DJD8ZZ Inspection of Lower Intestinal Tract, Via Natural or Artificial Opening Endoscopic (ICD-10-PCS; 2024-08-30)
PROC: 0UT64ZZ Resection of Left Fallopian Tube, Percutaneous Endoscopic Approach (ICD-10-PCS; 2024-08-30)
PROC: 0DTN4ZZ Resection of Sigmoid Colon, Percutaneous Endoscopic Approach (ICD-10-PCS; principal; 2024-08-30 13:30)
DX: K57.20 Diverticulitis of large intestine with perforation and abscess without bleeding (principal); K68.2 Retroperitoneal fibrosis; K63.2 Fistula of intestine

== ENCOUNTER 2024-08-19 15:01 | Emergency (ER) | payer OTHER ==
[~2024-08-19] VITALS: Ht 160 cm; Wt 72.6 kg
[~2024-08-19 15:01] MED LIST changes: +AMOX TR-K250 MG/5 M; +HORIZANT300 MG PO; +JANUMET 50-5001 EACH PO
[2024-08-19 15:14] VITALS: BP 143/82; O2SAT 99
[2024-08-19] MEDS ORDERED: KETOROLAC TROMETHAMINE 30 MG VIAL IM ONE (16:00)
== END 2024-08-19 16:02 | disposition left against medical advice (07) ==
LOC: ER 15:03
DX: M79.604 Pain in right leg (principal); J45.909 Unspecified asthma, uncomplicated; E11.9 Type 2 diabetes mellitus without complications; Z79.4 Long term (current) use of insulin; E78.00 Pure hypercholesterolemia, unspecified; I10 Essential (primary) hypertension; K57.30 Diverticulosis of large intestine without perforation or abscess without bleeding
CPT/HCPCS: 96372; 99282; J1885

== ENCOUNTER 2024-09-04 06:23 | Emergency (ER) | payer OTHER ==
[~2024-09-04] VITALS: Ht 154.9 cm; Wt 59.0 kg
[~2024-09-04 06:23] MED LIST changes: +AMOX-CLAV 875-1 EACH PO; +CELECOXIB200 MG PO; +LEVSIN/SL0.125 MG SL; +NEURONTIN300 MG PO
[2024-09-04] MEDS ORDERED: LOSARTAN POTASSIUM 100 MG TABLET PO ONE (09:00)
[2024-09-04 09:46] LABS: HEMOGLOBIN 9.1 g/dL (12.0-15.00); MEAN CELL VOLUME 93.4 fL (80.00-100.00); MEAN CORPUSCULAR HEMOGLOBIN 30.4 pg (27.00-32.0); MEAN CORPUSCULAR HGB CONC 32.5 g/dl (32.0-36.0); PLATELET COUNT 391 K/uL (150-450); RED CELL DISTRIBUTION WIDTH 14.5 % (11.5-14.5)
[2024-09-04 10:17] LABS: ALBUMIN 2.7 gm/dL (3.4-5.0); BILIRUBIN TOTAL 0.39 mg/dL (0.3-1.2); CALCIUM 8.9 mg/dL (8.5-10.1); CREATININE SERUM 1.12 mg/dL (0.55-1.02); GFR 46.02; GLOBULINA 3.7 G/DL (2.4-3.5); POTASSIUM 4.36 mEq/L (3.5-5.1); TOTAL PROTEIN 6.4 gm/dL (6.4-8.2)
[2024-09-04] MEDS ORDERED: ORPHENADRINE CITRATE 30 MG/ML AMPUL IM ONE (10:45)
[2024-09-04] MEDS ORDERED: DEXAMETHASONE SODIUM PHOSP/PF 10 MG/ML VIAL IJ ONE (10:45)
[2024-09-04 10:48] LABS: URINE APPEARANCE Clear; URINE BILIRRUBIN Negative (NEGATIVE); URINE BLOOD Negative; URINE COLOR Yellow; URINE GLUCOSE Negative (NEGATIVE); URINE KETONE Negative (NEGATIVE); URINE LEUKOCYTE Negative; URINE NITRATE Negative; URINE PROTEIN Negative (NEGATIVE); URINE UROBILINOGEN 0.2 E.U./dl
[2024-09-04 10:53] LABS: URINE EPITHELIAL CELLS 5.5 uL (0.0-38.8)
[2024-09-04 11:02] LABS: URINE BACTERIA 0 uL (0.0-1933); URINE RBC 0.4 uL (0.0-20.8); URINE WBC 0.6 uL (0.0-23.2)
[2024-09-04] MEDS ORDERED: DICYCLOMINE HCL 10 MG CAPSULE PO ONE (14:30)
[2024-09-04] MEDS ORDERED: KETOROLAC TROMETHAMINE 60 MG VIAL IM ONE (16:30)
== END 2024-09-04 17:43 ==
LOC: ER 06:25
PROVIDERS: General Practice
DX: R10.11 Right upper quadrant pain (principal); I10 Essential (primary) hypertension; J45.909 Unspecified asthma, uncomplicated; E11.9 Type 2 diabetes mellitus without complications; Z79.84 Long term (current) use of oral hypoglycemic drugs; Z98.0 Intestinal bypass and anastomosis status; K80.20 Calculus of gallbladder without cholecystitis without obstruction; R07.89 Other chest pain
CPT/HCPCS: 36415; 71110; 76700; 96372; 99284; J1100; J1885; J2360

== ENCOUNTER 2024-09-10 09:52 | Emergency (ER) | payer OTHER ==
[~2024-09-10] VITALS: Ht 162.6 cm; Wt 81.6 kg
[2024-09-10] MEDS ORDERED: 0.9 % SODIUM CHLORIDE 1,000 ML IV SCH (10:45)
[2024-09-10 11:47] LABS: HEMATOCRIT 33.1 % (36.0-45.00); HEMOGLOBIN 11.1 g/dL (12.0-15.00); MEAN CELL VOLUME 92.1 fL (80.00-100.00); MEAN CORPUSCULAR HEMOGLOBIN 30.9 pg (27.00-32.0); MEAN CORPUSCULAR HGB CONC 33.5 g/dl (32.0-36.0); PLATELET COUNT 529 K/uL (150-450)
[2024-09-10 12:08] LABS: CALCIUM 9.9 mg/dL (8.5-10.1); CREATININE SERUM 1.13 mg/dL (0.55-1.02); GFR 45.55; POTASSIUM 4.13 mEq/L (3.5-5.1)
[2024-09-10 12:24] LABS: URINE APPEARANCE Clear; URINE BILIRRUBIN Negative (NEGATIVE); URINE BLOOD Negative; URINE COLOR Yellow; URINE GLUCOSE Negative (NEGATIVE); URINE KETONE Negative (NEGATIVE); URINE LEUKOCYTE Trace; URINE NITRATE Negative; URINE PROTEIN Negative (NEGATIVE); URINE UROBILINOGEN 0.2 E.U./dl
[2024-09-10 12:26] LABS: ABG PH 7.427 (7.35-7.45); ABG PO2 87.1 mmHg (80-100); ABG pCO2 42.1 mmHg (35-45); BASE EXCESS 2.5 mmol/l; BICARBONATE 27.1 mmol/l (23-25); SaO2 96.9 %; Tco2 28.4 mmol/l; allen test SATISFACTORY; puncture site RADIAL RIGHT
[2024-09-10 12:26] LABS: URINE BACTERIA 45.2 uL (0.0-1933); URINE EPITHELIAL CELLS 32.4 uL (0.0-38.8); URINE RBC 2.7 uL (0.0-20.8); URINE WBC 22.6 uL (0.0-23.2)
[2024-09-10 12:27] LABS: o2 21 %
== END 2024-09-10 13:34 | disposition home or self-care (01) ==
LOC: ER 09:54
PROVIDERS: Emergency Medicine
DX: R07.82 Intercostal pain (principal); F41.9 Anxiety disorder, unspecified; Z20.822 Contact with and (suspected) exposure to COVID-19; I10 Essential (primary) hypertension; E11.9 Type 2 diabetes mellitus without complications; Z79.84 Long term (current) use of oral hypoglycemic drugs
CPT/HCPCS: 36415; 71045; 82803; 96365; 96366; 99283; J7030

== ENCOUNTER 2025-02-08 14:36 | Emergency (ER) | payer OTHER ==
[~2025-02-08] VITALS: Ht 157.5 cm; Wt 64.9 kg
[2025-02-08] MEDS ORDERED: JANUMET XR 50-1 EACH PO (15:25)
[2025-02-08] MEDS ORDERED: LANTUS SOL100 UNIT/1 SQ (15:26)
[2025-02-08 18:23] LABS: HEMATOCRIT 37.2 % (34.1-44.9); HEMOGLOBIN 12.2 g/dL (11.2-15.7); RED BLOOD COUNT 4.04 M/uL (3.93-5.22)
[2025-02-08 18:24] LABS: BASO % 1.3 % (0.1-1.2); EOS % 2.3 % (0.7-7.0); LYMPH # 2.91 (1.18-3.74); LYMPH % 33.3 % (19.3-53.1); MEAN CORPUSCULAR HEMOGLOBIN 30.2 pg (25.6-32.2); MONO # 0.47 (0.24-0.82); MONO % 5.4 % (4.7-12.5); NEUT # 5.01 (1.56-6.13); NEUT % 57.1 % (34.0-71.1); PLATELET COUNT 308 K/uL (163-369); RED CELL DISTRIBUTION WIDTH 14.7 % (11.6-14.4)
[2025-02-08 18:33] LABS: ALBUMIN 3.9 gm/dL (3.4-5.0); BILIRUBIN TOTAL 0.53 mg/dL (0.3-1.2); CALCIUM 9.2 mg/dL (8.5-10.1); CREATININE SERUM 1.32 mg/dL (0.55-1.02); GFR 37.98; GLOBULINA 3.5 G/DL (2.4-3.5); POTASSIUM 4.9 mEq/L (3.5-5.1); TOTAL PROTEIN 7.4 gm/dL (6.4-8.2)
[2025-02-08] MEDS ORDERED: KETOROLAC TROMETHAMINE 30 MG VIAL IV ONE (21:15)
[2025-02-08] MEDS ORDERED: KETOROLAC TROMETHAMINE 30 MG VIAL IM STA (22:15)
[2025-02-08] MEDS ORDERED: KETOROLAC TROMETHAMINE 30 MG VIAL ONE (22:16)
[2025-02-08] MEDS ORDERED: PEPCID AC20 MG PO (22:36)
[2025-02-08] MEDS ORDERED: IBUPROFEN800 MG PO (22:36)
== END 2025-02-08 22:42 | disposition home or self-care (01) ==
LOC: ER 14:55
PROVIDERS: Preventive Medicine Public Health & General Preventive Medicine
DX: K80.20 Calculus of gallbladder without cholecystitis without obstruction (principal); E11.9 Type 2 diabetes mellitus without complications; Z79.4 Long term (current) use of insulin; Z79.84 Long term (current) use of oral hypoglycemic drugs; I10 Essential (primary) hypertension

== ENCOUNTER 2025-05-15 14:11 | Emergency (ER) | payer OTHER ==
[~2025-05-15] VITALS: Ht 154.9 cm; Wt 63.5 kg
[~2025-05-15 14:11] MED LIST changes: +IBUPROFEN800 MG PO; +JANUMET XR 50-1 EACH PO; +LANTUS SOL100 UNIT/1 SQ; +PEPCID AC20 MG PO
[2025-05-15] MEDS ORDERED: GUAIFEN/DEXTROMETHORPHAN/PE 10 ML BLIST.PACK PO STA (17:07)
[2025-05-15] MEDS ORDERED: 0.9 % SODIUM CHLORIDE 500 ML IV ONE (17:15)
[2025-05-15] MEDS ORDERED: GILTUSS DIABET118 ML PO (18:19)
== END 2025-05-15 18:28 | disposition home or self-care (01) ==
LOC: ER 14:29
DX: A49.3 Mycoplasma infection, unspecified site (principal); R05.8 Other specified cough; E86.0 Dehydration; E11.9 Type 2 diabetes mellitus without complications; Z79.4 Long term (current) use of insulin

== ENCOUNTER → 2025-05-26 | Emergency (ER) | payer OTHER ==
[~2025-05-26] VITALS: Ht 154.9 cm; Wt 63.5 kg
[~2025-05-26] MED LIST changes: +GILTUSS DIABET118 ML PO
[2025-05-26 15:39] LABS: BASO % 0.9 % (0.1-1.2); EOS # 0.30 (0.04-0.54); EOS % 2.6 % (0.7-7.0); LYMPH # 2.48 (1.18-3.74); LYMPH % 21.1 % (19.3-53.1); MEAN PLATELET VOLUME 9.60 fl (9.4-12.4); MONO # 0.75 (0.24-0.82); MONO % 6.4 % (4.7-12.5); NEUT # 7.35 (1.56-6.13); NEUT % 62.4 % (34.0-71.1); RED CELL DISTRIBUTION WIDTH 14.4 % (11.6-14.4)
[2025-05-26 16:12] LABS: EOSINOPHIL MAN 1.0 %; LYMPHOCYTE MAN 18.0 %; MONOCYTE MAN 2.0 %
[2025-05-26 16:13] LABS: MYELOCYTE 7.0 %
[2025-05-26 16:16] LABS: NEUTROPHILS MAN 69.0 %
[2025-05-26 16:23] LABS: ALT/SGPT 19.0 U/L (12-78); AST/SGOT 9.0 U/L (15-37); BILIRUBIN TOTAL 0.59 mg/dL (0.3-1.2); BUN CREA RATIO 23.0 (7.0-25.0); CREATININE SERUM 1.42 mg/dL (0.55-1.02); GFR 34.91; GLOBULINA 4.1 G/DL (2.4-3.5); GLUCOSE FASTING 198.0 mg/dL (65-100); OSMOLALITY SERUM 292.0 MOSM/KG (275-295)
[2025-05-26 16:33] LABS: COVID-19 AG NEGATIVE (NEGATIVE)
== END | disposition home or self-care (01) ==
LOC: ER 12:31
PROVIDERS: Preventive Medicine Public Health & General Preventive Medicine
DX: G89.11 Acute pain due to trauma (principal); M79.601 Pain in right arm; R07.89 Other chest pain; R05.9 Cough, unspecified; Z20.822 Contact with and (suspected) exposure to COVID-19; I10 Essential (primary) hypertension; E11.9 Type 2 diabetes mellitus without complications; Z79.84 Long term (current) use of oral hypoglycemic drugs